=== PATIENT | male | born 1975 | race African-American/Black ===

== ENCOUNTER 2016-12-12 08:32 | Inpatient (IN) ==
[2016-12-12] MEDS ORDERED: amLODIPine 5 MG TABLET ONE (09:11)
[2016-12-12 09:16] LABS: Basophils % 0.3 % (0.0-0.8); Eosinophils # 0.1 10*3/uL (0.0-0.87); Eosinophils % 1.7 % (0.00-10.9); Hematocrit 41.4 VOL% (42.0-52.0); Hemoglobin 14.4 GM/DL (14.0-18.0); Immature Granulocytes % 0.2 %; Immature Granulocytes Absolute 0.01 #; Lymphocytes # 2.1 10*3/uL (1.4-4.0); Lymphocytes % 35.1 % (21.2-54.2); Mean Corpuscular HGB Conc 34.8 GM/DL (32-36); Mean Corpuscular Hemoglobin 29 PG (27-34); Mean Corpuscular Volume 83.3 FL (87-102); Mean Platelet Volume 11.4 FL (9.6-12.0); Monocytes # 0.4 10*3/uL (0.11-0.8); Monocytes % 6.8 % (1.7-12.7); Neutrophils # 3.3 10*3/uL (1.4-7.4); Neutrophils % 55.9 % (38.7-73.9); Platelet Count 219 T/CUMM (130-400); Red Blood Count 4.97 MC/CUMM (3.8-5.5); Red Cell Distribution Width 12.8 % (9.3-17.3); White Blood Count 5.8 T/CUMM (4-12)
--- NOTE | 2016-12-12 09:16 | CT Report ---
History: Slurred speech. Unsteady gait Date: 12/12/2016 Study: CT head without contrast Comparison exam: No previous head CT available Transaxial CT sections were obtained through the head without IV contrast. This CT exam was performed using one or more the following dose reduction techniques: Automated exposure control, adjustment of the MA and/or KV according to patient size, or use of iterative reconstruction technique. The ventricles are midline in position without evidence of hydrocephalus. There is no mass or parenchymal hemorrhage. There is no gross CT evidence of acute cortical stroke. There is a small amount of ill-defined low density in the periventricular white matter without mass effect compatible with changes of small vessel disease. There is no extra-axial hematoma. The partially visualized paranasal sinuses and mastoid air cells are clear. Impression: No acute intracranial process PROCEDURE INTERPRETED AT [facility] DEPARTMENT OF RADIOLOGY Final Report Signed by: Dr. Edith Eaton
--- NOTE | 2016-12-12 09:18 | EKG Report ---
Stationary ECG Study [facility] ER Test Date: 12/12/2016 9:16:23 AM Pat Name: KURT TORRES Department: Room: Gender: M Media Reporter: : 1975 Requested by: Shane Solis Order Number: [id number] Reading MD: SILVINO BURGOS Intervals [place] Rate: 70 P: 69 WV: 146 QRS: 97 QRSD: 101 T: -43 QT: 381 QTc: 401 Interpretive Statements SINUS RHYTHM BORDERLINE RIGHT AXIS DEVIATION ST DEVIATION AND MODERATE T-WAVE ABNORMALITY, CONSIDER INFERIOR ISCHEMIA Electronically Signed On 12-12-16 16:13:42 CDT by SILVINO BURGOS [email or web address]
[2016-12-12] MEDS ORDERED: amLODIPine 5 MG TABLET PO STA (09:19)
[2016-12-12 09:37] LABS: Alanine Aminotransferase 25 U/L (16-61); Albumin 3.7 G/DL (3.4-5.0); Alkaline Phosphatase 74 U/L (45-117); Aspartate Amino Transferase 15 U/L (0-37); Bilirubin,Total < 0.39 MG/DL (0.2-1.0); Blood Urea Nitrogen 13 MG/DL (7-18); Glucose 184 MG/DL (74-106); Osmolality,Calculated 285.3 MOS/KG (273-304); Potassium 3.4 MMOL/L (3.5-5.1); Sodium 141 MMOL/L (136-145); Total Protein 6.8 G/DL (6.4-8.3)
--- NOTE | 2016-12-12 09:51 | XRay Report ---
XR chest 1V portable Indication: Cardiomegaly Comparison: None Technique: Single frontal view of the chest. Findings: Heart size appears within normal limits. No significantly enlarged lymph nodes by CT size criteria. Visualized osseous and surrounding soft tissue structures demonstrate no acute abnormality. IMPRESSION: No acute cardiopulmonary process demonstrated. PROCEDURE INTERPRETED AT [facility] DEPARTMENT OF RADIOLOGY Final Report Signed by: Dr Jorje Hsu
--- NOTE | 2016-12-12 10:25 | Emergency Department Note ---
Darren Retana Gwan, am scribing for, and in the presence of, Shane Garrett MD 10:07. Tami Retana Phillip K, MD, personally performed the services described in this documentation, ascribed by Prabhjot Banks in my presence, and it is both accurate and complete . Arrival - Arrival Chief Complaint: Neuro Stated Complaint: My speech, my legs not working right ED Nursing Triage Note: Pt c/o slurred speech and states his legs are not "walking right". Pt ambulatory into triage without difficulty. Mode of Arrival: Ambulatory Limitations: No Limitations Source: Patient, Old Records Reviewed, RN Notes Reviewed Time Seen by Provider: 12/12/16 09:04 - History of Present Illness HPI Narrative: Patient is a 41 y/o male, with a hx of HTN, who presents to the ED with a c/o slurred speech and weakness in right leg with an onset yesterday at 1600. Patient stated that his sxs onset yesterday while he was at work. He continued to note that when he woke up this morning, his sxs worsened to include numbness in right upper and lower extremity. This prompted the pt to report to the ED for further evaluation. Patient confirmed that he voluntarily stopped taking his BP medication 2 years ago and that he has a SHx of smoking cigarettes and occasional ETOH use. Patient denies any chest pain or having a WARREN now while in ED. He also has a FMHx of strokes. No other problem/concerns reported in ED. Onset (ago): day(s) Consistency: constant Severity: moderate Allergies/Adverse Reactions: Allergies Allergy/AdvReac Type Severity Reaction Status Date / Time No Known Allergies Allergy Verified 12/12/16 08:41 Review of System - Review of System 12 point system: reviewed and no additional remarkable complaints except as stated - Review of System Constitutional: Absent: chills, fever Eyes: Absent: discharge, pain Head/Ears/Nose/Throat: Absent: earache Respiratory: Absent: cough Cardiovascular: Absent: chest pain Gastrointestinal: Absent: abdominal pain, nausea, vomiting, diarrhea Genitourinary male: Absent: urgency, dysuria Musculoskeletal: Absent: arm pain, back pain, leg pain, neck pain Skin: Absent: rash, lesions Neurological: Present: as per HPI, weakness (right arm and right leg) Psychiatric: Absent: anxiety Medical,Surgical,& Family Hx - Medical History Cardio: History of: Hypertension (does not take meds) - Social History Smoking Status: Current every day smoker Exam Vital Signs: Vital Signs Temperature 97.4 F L 12/12/16 09:15 Pulse Rate 88 12/12/16 09:15 Respiratory Rate 18 12/12/16 09:15 Blood Pressure 175/117 12/12/16 09:15 O2 Sat by Pulse Oximetry 98 12/12/16 09:00 - General General appearance: alert, in no apparent distress - Head Head exam: Present: atraumatic, normocephalic - Eye Eye exam: Present: normal appearance, PERRL, EOMI - ENT ENT exam: Present: normal oropharynx, mucous membranes moist, TM's normal bilaterally, normal external ear exam - Neck Neck exam: Present: full ROM, trachea midline. Absent: tenderness - Chest Chest inspection: Present: symmetric chest wall rise. Absent: tenderness - Respiratory Respiratory exam: Present: normal lung sounds bilaterally. Absent: respiratory distress - Cardiovascular Cardiovascular exam: Present: regular rate, normal rhythm, normal heart sounds. Absent: murmur, rubs - Abdominal Exam Abdominal exam: Present: soft, normal bowel sounds. Absent: distention, tenderness - Extremities Exam Extremities exam: Present: full ROM, other (weakness is noted in the right paper deliverer , right lower extremity and right upper extremitiy). Absent: tenderness - Back Exam Back exam: Present: full ROM. Absent: tenderness - Neurological Exam Neurological exam: Present: alert, oriented X3 - Psychiatric Psychiatric exam: Present: normal affect, normal mood - Skin Skin exam: Present: warm, dry, intact, normal color Course Course Narrative: Patient remains hypertensive after the [facility]. We will add some labetalol 20 mg IV. Patient discussed with the hospitalist who will admit for further evaluation and neurology consult. Patient continues to have weakness in his right paper deliverer and is right-handed. Results - Labs CBC & BMP: 12/12/16 09:02 12/12/16 09:02 Lab Results: I have reviewed the patients labs Labs: Laboratory Tests 12/12/16 09:02 WBC 5.8 RBC 4.97 Hgb 14.4 Hct 41.4 L MCV 83.3 L Plt Count 219 Laboratory Tests 12/12/16 09:02 Sodium 141 Potassium 3.4 L Chloride 104 Carbon Dioxide 28 BUN 13 Creatinine 1.00 Glucose 184 H Serum Alcohol < 15 L - EKG EKG results: interpreted by ERMD, sinus rhythm (Inferior and lateral ischemia versus LVH with strain) - Diagnostic Findings Procedure: Chest x-ray: report reviewed by me (No acute cardiopulmonary process demonstrated. ), CT: report reviewed by me (No acute intracranial process. ) Disposition Clinical Impression: CVA versus TIA, Hypertension, Tobacco abuse Case discussed with: patient Disposition: Still a Patient Condition: Guarded Additional Instructions: Admit to the hospitalist.
[2016-12-12 10:32] LABS: Apearance,Urine CLEAR (Clear); Bilirubin,Urine Negative (Negative); Blood, Urine Negative (Negative); Glucose,Urine (UA) >=500 mg/dL (Negative); Ketones,Urine Negative (Negative); Nitrite,Urine Negative (Negative); Protein,Urine Negative; RBC,Urine <1 /HPF (0-4); Urine Color Yellow (Yellow); Urine Specific Gravity 1.011 (1.001-1.035); Urine Urobilinogen < 2.0 EU/DL (0.2-1.0); WBC,Urine <1 /HPF (0-6)
[2016-12-12] MEDS ORDERED: LABETALOL 20 MG/4 ML SYRINGE IV STA (10:32)
[2016-12-12 10:37] LABS: Barbiturates Screen,Urine Negative (Negative); Benzodiazepines Screen,Urine Negative (Negative); Cannabinoid Screen,Urine Negative (Negative); Opiate Screen,Urine Negative (Negative); Phencyclidine Screen,Urine Negative (Negative)
[2016-12-12] MEDS ORDERED: LABETALOL 20 MG/4 ML SYRINGE IV ONE (10:43)
--- NOTE | 2016-12-12 11:14 | Hospitalist History & Physical ---
Assessment and Plan (1) Hypertension Status: Chronic Assessment and plan: Untreated hypertension associated with retina and probable subcortical/lacunar event. Urine drug screen positive for cocaine. Hypokalemia possibly reflective adrenergic shift versus endocrine mediated hypertension. Current Visit: Yes History of Present Illness History of present illness: Mr. Acevedo is a 41 year old male who was diagnosed 3 years ago as having hypertension. He took medication for less than a year and did not follow up he states that yesterday after working in a hot environment he noticed some weakness in his right leg and right upper extremity. There was no headache speech disturbance visual changes nausea vomiting etc. When he awoke this morning the symptoms had not remitted and he presented to the emergency department. He describes no worsening or improvement in his symptoms overnight and no new symptoms. In the emergency room he was significantly hypertensive and is admitted to the hospital for further evaluation and treatment. Home Medications Medication Instructions Recorded Confirmed Type No Known Home Medications [No 12/12/16 12/12/16 History Known Home Medications] Allergies Allergy/AdvReac Type Severity Reaction Status Date / Time No Known Allergies Allergy Verified 12/12/16 08:41 Medical,Surgical,& Family Hx - Medical History Cardio: History of: Hypertension (Off medications for 2-2 and half years) - Surgical History HEENT Surgeries: Surgical HX of: Tonsilectomy & Adenoidectomy - Social History Smoking Status: Current every day smoker (Approximately three quarters of a pack per day) Frequency of Alcohol Use: Rarely - Constitutional Constitutional: Absent: chills, frequent falls, headache(s) - EENT Eyes: Absent: blurry vision, diplopia - Cardiovascular Cardiovascular: Absent: chest pain at rest, chest pain with activity, edema, orthopnea, palpitations - Respiratory Respiratory: Absent: dyspnea - Gastrointestinal Gastrointestinal: Absent: abdominal pain, coffee ground emesis, dysphagia, hematemesis, hematochezia, melena, nausea, vomiting - Genitourinary Genitourinary: Absent: difficulty urinating, hematuria - Neurological Neurological: Present: as per HPI Exam - Constitutional Vitals: Period Temp Pulse Resp BP Sys/Choi Pulse Ox Last 24 Hr 97.3 F-97.4 F 80-88 16-20 175-186/111-117 97-98 General appearance: normal weight - Eye Pupils: Present: NEVIN, normal accommodation, unequal (Funduscopic exam shows chronic vascular changes with no papilledema) - Neck Neck exam: Absent: lymphadenopathy, thyromegaly - Respiratory Respiratory exam: Present: clear to auscultation bilaterally. Absent: rales, rhonchi, wheezes - Cardiovascular Cardiovascular exam: Present: regular rate and rhythm - GI/Abdominal GI/Abdominal exam: Present: normal bowel sounds, other (No intra-abdominal or flank bruits). Absent: organomegaly - Extremities Exam Extremities exam: Absent: edema - Neurological Exam Neurological exam: Present: alert, oriented X3, CN II-XII intact, other (3 out of 4 weakness right upper and light lower with normal cerebellar exam) - Psychiatric Psychiatric exam: Present: normal affect, normal mood Results - Labs CBC & BMP: 12/12/16 09:02 12/12/16 09:02 Labs: Normal liver panel Urine drug screen positive for cocaine Urinalysis glucose greater than 500 no active sediment - Impressions Sinus rhythm rightward axis with inferior repolarization abnormality suggesting right ventricular hypertrophy type B augmented QRS voltage without delayed ventricular activation time. - Diagnostic Findings Procedure: Chest x-ray: image reviewed by me (Normal heart size with slight left ventricular configuration normal vascularity), CT: report reviewed by me ( CT of head demonstrates no abnormality.) Quality Measures - Stroke Onset of Symptoms Date: 12/11/16 Onset of Symptoms Time: 16:00
[2016-12-12] MEDS ORDERED: ONDANSETRON 4 MG/2 ML VIAL IV PRN (11:20)
[2016-12-12] MEDS ORDERED: ZALEPLON 5 MG CAPSULE PO PRN (11:20)
[2016-12-12] MEDS ORDERED: BISACODYL 5 MG TABLET PO PRN (11:20)
[2016-12-12 12:53] LABS: Risk Ratio 3.09; VLDL CHOLESTEROL 29.4 MG/DL
[2016-12-12] MEDS: DOCUSATE SODIUM 100 MG CAPSULE PO SCH ×2 (13:21→21:08)
[2016-12-12] MEDS: ATORVASTATIN 40 MG TABLET PO SCH (13:22)
[2016-12-12] MEDS: LABETALOL 300 MG TABLET PO SCH ×2 (13:23→21:09)
[2016-12-12] MEDS: NIFEdipine 10 MG CAPSULE PO SCH ×3 (13:23→23:50)
[2016-12-12] MEDS: ENOXAPARIN 40 MG/0.4 ML SYRINGE SUBCUT SCH (13:48)
--- NOTE | 2016-12-12 15:34 | Magnetic Resonance Report ---
History: Right-sided weakness. Date: 12/12/2016 Study: MRI brain without contrast Comparison exam: No previous MRI study The brain was imaged in 3 planes on the 1.2 Meka open magnet without IV contrast, to include diffusion, T2, FLAIR, and T1-weighted sequences. The exam was performed on the day of admission. The ventricles are midline in position without evidence of hydrocephalus. There is no Chiari I malformation. Is no gross pituitary mass. Small areas of focal restricted diffusion compatible with acute ischemia between 6 hours and 4 days old involving multiple vascular territories are noted. There is an 8.7 mm area of restricted diffusion in the right occipital lobe abutting the right occipital horn and splenium of the corpus callosum; there is a rounded 11 mm area of restricted diffusion in the left rosales radiata at the level of the posterior body of the left lateral ventricle; there is a 4.2 mm focus of restricted diffusion involving right frontal cortex and subcortical white matter. There is some patchy increased FLAIR and T2 signal without mass effect or restricted diffusion involving the periventricular white matter as well. Some of these changes involve the pericallosal area. There is no mass effect within the brain or parenchymal hemorrhage. There is asymmetrically decreased fluid signal within the left internal auditory canal as compared to the right, raising the question of underlying acoustic neuroma. There is no extra-axial hematoma. There is normal flow void in the superior sagittal sinus. There is no gross flow abnormality in the [place] area. There is some mild lobular mucosal thickening in the maxillary sinuses bilaterally. Impression: There are 3 scattered areas of restricted diffusion involving multiple vascular territories compatible with acute ischemia. Consider embolic phenomena. These foci are located within the right occipital lobe, right frontal lobe, and left rosales radiata. Also consider the possibility of demyelinating disease. There is some increased periventricular and pericallosal white matter T2 and FLAIR signal without mass effect. Follow-up postcontrast study may provide clarification There is asymmetrically decreased fluid signal within the left internal auditory canal, raising the question of potential underlying acoustic neuroma on the left. Postcontrast images using IAC protocol could provide clarification. Mild chronic sinus disease PROCEDURE INTERPRETED AT [facility] DEPARTMENT OF RADIOLOGY Final Report Signed by: Dr. Edith Eaton
--- NOTE | 2016-12-12 15:52 | Neurology Consult Note ---
History of Present Illness History of present illness: Mr. Acevedo is a 41 year old right-handed -Indian gentleman who was diagnosed 3 years ago as having hypertension. He took medication for less than a year and did not follow up he states that yesterday after working in a hot environment he noticed some weakness in his right leg and right upper extremity. There was no headache speech disturbance visual changes nausea vomiting etc. When he awoke this morning the symptoms had not remitted and he presented to the emergency department. He describes no worsening or improvement in his symptoms overnight and no new symptoms. In the emergency room he was significantly hypertensive and is admitted to the hospital for further evaluation and treatment. MRI of the brain revealed left centrum semiovale and right posterior parietal acute infarcts. Toxicology is positive for cocaine. He does smoke a pack per day. Denies alcohol Home Medications Medication Instructions Recorded Confirmed Type No Known Home Medications [No 12/12/16 12/12/16 History Known Home Medications] Allergies Allergy/AdvReac Type Severity Reaction Status Date / Time No Known Allergies Allergy Verified 12/12/16 08:41 12 point system: reviewed and no additional remarkable complaints except as stated Medical,Surgical,& Family Hx - Medical History Cardio: History of: Hypertension (Off medications for 2-2 and half years) - Surgical History HEENT Surgeries: Surgical HX of: Tonsilectomy & Adenoidectomy - Family History Family History: Reports;: Family Diabetes, Family Heart Disease (mom/sister) Denies;: Family Anesthesia Reaction, Family Cancer, Family Hematology, Family Hypertension, Family Psychiatric Problems, Family Stroke - Social History Smoking Status: Current every day smoker Frequency of Alcohol Use: Rarely Exam - Constitutional Vitals: Period Temp Pulse Resp BP Sys/Choi Pulse Ox Last 24 Hr 97.3 F-97.9 F 73-88 16-20 158-186/104-117 97-99 Exam: GENERAL: Patient is in no acute distress. NECK: Neck is supple. There is no JVD. No carotid bruits present. No thyroid masses. CVS: First and second heart sounds are normal. There is no S3 present. Regular rate and rhythm. RESPIRATORY: Lungs are clear to auscultation without any rales or rhonchi. ABDOMEN: Soft and non-tender. Bowel sounds are present. There is no hepatosplenomegaly. EXT: There is no palpable edema. Peripheral pulses are present. Skin: No rashes Central Nervous system: General: Alert, awake and Oriented x 3 Speech: Fluent Comprehension: Intact and normal Facial expressions: Normal Cranial Nerves: CN1/Olfactory: Normal CN II/ Optic: Normal, Visual Anderson unreliable CN III, and : NEVIN & EOMI CN V: Normal & intact CN VII: face is symmetric CNVIII: Normal CN XI/X/XI/XII: Intact and Normal Motor: Bulk and Tone is normal. Strength in the right 5/5 Strength in the left 5/5 Sensory: Grossly intact for all the modalities of PP, LT and temp sense Reflexes: 1+ and symmetrical Cerebellar function: Normal finger to nose and heel to mart testing. Toes: Equivocal Gait: Slightly broad-based Results - Labs CBC & BMP: 12/12/16 09:02 12/12/16 09:02 Assessment and Plan (1) Acute cerebrovascular accident Status: Acute Assessment and plan: Aspirin 325 mg. P.o. daily Carotid ultrasound Echo cardiac Current Visit: Yes (2) Cocaine use Status: Acute Assessment and plan: Counseled him regarding cessation of cocaine use or any drug abuse. Current Visit: Yes (3) Hypertension Status: Chronic Assessment and plan: Continue current medications. Check vitals per routine. Current Visit: Yes (4) Tobacco abuse Status: Acute Assessment and plan: Counseled him regarding cessation of smoking. Current Visit: Yes
[2016-12-12] MEDS: ASPIRIN EC 325 MG TABLET PO SCH (17:29)
--- NOTE | 2016-12-12 17:30 | Ultrasound Report ---
Bilateral carotid Doppler. Indication: CVA. Hypertension. Right-sided weakness. No prior studies. Grayscale, color-flow, and spectral analysis performed and interpreted. The carotid artery systems are quite tortuous. Minimal if any plaque is visible. The right internal carotid artery peak systolic velocity is 126 cm/s, with an IC/CC ratio of 1.0. The left internal carotid artery peak systolic velocity is 151 cm/s, with an IC/CC ratio of 1.3. There is antegrade flow within each vertebral artery. Impression: NASCET criteria were utilized. Discordant findings are present, with elevated peak systolic velocities suggesting greater than 50% stenosis bilaterally. However the IC/CC ratios, which tend to be more accurate, are within the range of normal. I suspected that the peak systolic velocities may be elevated due to either the tortuosity of the vessels, or hypertension, or combination of these things. For this reason, I recommend MRA of the carotid bifurcations for confirmation. PROCEDURE INTERPRETED AT [facility] DEPARTMENT OF RADIOLOGY Final Report Signed by: Dr. Radha Iyer
[2016-12-12] MEDS ORDERED: GLUCAGON 1 MG VIAL IM PRN (22:05)
[2016-12-12] MEDS ORDERED: DEXTROSE 50% 25 GM/50 ML VIAL IV PRN (22:05)
[2016-12-12] MEDS: INSULIN REGULAR 100 UNIT/ML SUBCUT SCH (22:22)
[2016-12-13] MEDS: NIFEdipine 10 MG CAPSULE PO SCH ×3 (05:10→17:38)
[2016-12-13 06:31] LABS: Calcium 8.3 MG/DL (8.5-10.1); Osmolality,Calculated 281.5 MOS/KG (273-304); Potassium 3.6 MMOL/L (3.5-5.1)
[2016-12-13] MEDS: INSULIN REGULAR 100 UNIT/ML SUBCUT SCH ×4 (08:20→21:30)
[2016-12-13] MEDS: ASPIRIN EC 325 MG TABLET PO SCH (08:21)
[2016-12-13] MEDS: DOCUSATE SODIUM 100 MG CAPSULE PO SCH ×2 (08:21→21:30)
[2016-12-13] MEDS: ATORVASTATIN 40 MG TABLET PO SCH (08:21)
[2016-12-13] MEDS: LABETALOL 300 MG TABLET PO SCH ×2 (08:22→21:30)
--- NOTE | 2016-12-13 09:25 | Neurology Progress Note ---
Neurology - PN : Subjective Interval history: Patient seems to be doing okay. He states that he may be slightly weaker than the right arm. Echo is pending Exam (Progress Note) - Constitutional Vitals: Period Temp Pulse Resp BP Sys/Choi Pulse Ox Last 24 Hr 97.7 F-98.1 F 69-96 17-20 113-186/57-111 96-99 Exam: GENERAL: Patient is in no acute distress. NECK: Neck is supple. There is no JVD. No carotid bruits present. No thyroid masses. CVS: First and second heart sounds are normal. There is no S3 present. Regular rate and rhythm. RESPIRATORY: Lungs are clear to auscultation without any rales or rhonchi. ABDOMEN: Soft and non-tender. Bowel sounds are present. There is no hepatosplenomegaly. EXT: There is no palpable edema. Peripheral pulses are present. Skin: No rashes Central Nervous system: General: Alert, awake and Oriented x 3 Speech: Fluent Comprehension: Intact and normal Facial expressions: Normal Cranial Nerves: CN1/Olfactory: Normal CN II/ Optic: Normal, Visual Anderson unreliable CN III, and : NEVIN & EOMI CN V: Normal & intact CN VII: face is symmetric CNVIII: Normal CN XI/X/XI/XII: Intact and Normal Motor: Bulk and Tone is normal. Strength in the right 5/5 Strength in the left 5/5 Sensory: Grossly intact for all the modalities of PP, LT and temp sense Reflexes: 1+ and symmetrical Cerebellar function: Normal finger to nose and heel to mart testing. Toes: Equivocal Gait: Slightly broad-based Results - Labs CBC & BMP: 12/12/16 09:02 12/13/16 04:47 Assessment and Plan (1) Acute cerebrovascular accident Status: Acute Assessment and plan: Continue aspirin 325 mg. P.o. daily Current Visit: Yes (2) Cocaine use Status: Acute Assessment and plan: Counseled him regarding cessation of cocaine use or any drug abuse. Possibly cocaine induced vasculopathy may be the cause of a stroke along with hypertension Current Visit: Yes (3) Hypertension Status: Chronic Assessment and plan: Continue current medications. Check vitals per routine. Blood pressure is a stable. Current Visit: Yes (4) Tobacco abuse Status: Acute Assessment and plan: Counseled him regarding cessation of smoking. Current Visit: Yes Quality Measures - Stroke Onset of Symptoms Date: 12/11/16 Onset of Symptoms Time: 16:00
[2016-12-13] MEDS: ENOXAPARIN 40 MG/0.4 ML SYRINGE SUBCUT SCH (12:30)
[2016-12-13] MEDS ORDERED: MAGNESIUM HYDROXIDE SUSP 30 ML UDCUP PO PRN (15:45)
--- NOTE | 2016-12-13 15:55 | Hospitalist Progress Note ---
Assessment and Plan (1) Hypertension Status: Chronic Current Visit: Yes (2) Tobacco abuse Status: Acute Current Visit: Yes (3) Acute cerebrovascular accident Status: Acute Assessment and plan: MRA carotids ordered Current Visit: Yes (4) Cocaine use Status: Acute Current Visit: Yes Hospitalist: Subjective Interval history: No acute events overnight. He is doing well. He reports constipation for approximately 2 days. Exam - Constitutional Vitals: Period Temp Pulse Resp BP Sys/Choi Pulse Ox Last 24 Hr 97.4 F-98.1 F 69-96 17-20 113-140/57-85 96-98 General appearance: over weight - Head Head exam: Present: normocephalic, atraumatic - Eye Eye exam: Present: EOMI Pupils: Present: NEVIN - ENT ENT exam: Present: normal exam - Neck Neck exam: Present: normal inspection - Respiratory Respiratory exam: Present: clear to auscultation bilaterally. Absent: wheezes - Cardiovascular Cardiovascular exam: Present: regular rate and rhythm - GI/Abdominal GI/Abdominal exam: Present: normal bowel sounds, soft. Absent: tenderness - Extremities Exam Extremities exam: Present: normal inspection - Back Exam Back exam: Present: normal inspection - Neurological Exam Neurological exam: Present: alert, oriented X3 - Psychiatric Psychiatric exam: Present: normal affect, normal mood Results - Labs CBC & BMP: 12/12/16 09:02 12/13/16 04:47 Quality Measures - Stroke Onset of Symptoms Date: 12/11/16 Onset of Symptoms Time: 16:00 Specialty Discharge - Follow Up or Referrals
--- NOTE | 2016-12-13 16:27 | ECHO Report ---
AcevedoMassimo miller Exam Date: 12/13/2016 09:29 Referring Physician: Technologist: kyle Zapata ARDMS, RVT Age: 41 Ht (in): 67 Wt (lb): 210 Gender: M Exam Location: [facility] Echo Indications: Essential (primary) hypertension, Acute CVA, Cocaine use BP: 132 / 75 HR: 76 Rhythm: Sinus Technical Quality: Good IMPRESSIONS Normal left ventricular cavity size. Moderate left ventricular hypertrophy. Left ventricular ejection fraction is estimated at 55-60 %. The right ventricle is normal in size and function. The right atrium is normal in size. The left atrium is normal in size. Mild aortic valve sclerosis. Mild aortic valve sclerosis. Morphologically normal tricuspid valve. Trace to mild tricuspid valve regurgitation. Tricuspid regurgitation velocities suggest a PAP of 36 mmHg. Morphologically normal pulmonic valve without significant stenosis. There is no pulmonic regurgitation. Normal pericardium without effusion. Normal ascending aorta dimension. MEASUREMENTS (Male / Female) Normal Values 2D ECHO LV Diastolic Diameter PLAX 4.5 cm 4.2 - 5.9 / 3.9 - 5.3 cm LV Systolic Diameter PLAX 1.8 cm LV Fractional Shortening PLAX 60.9 % IVS Diastolic Thickness 1.5 cm 0.6 - 1.0 / 0.6 - 0.9 cm LVPW Diastolic Thickness 1.6 cm 0.6 - 1.0 / 0.6 - 0.9 cm RV Internal Dim ED PLAX 2.8 cm Aortic Root Diameter 3.2 cm LA Systolic Diameter LX 3.5 cm 3.0 - 4.0 / 2.7 - 3.8 cm DOPPLER TR Peak Velocity 257.0 cm/s TR Peak Gradient 26.4 mmHg FINDINGS Left Ventricle Normal left ventricular cavity size. Moderate left ventricular hypertrophy. Left ventricular ejection fraction is estimated at 55-60 %. Right Ventricle The right ventricle is normal in size and function. Right Atrium The right atrium is normal in size. Left Atrium The left atrium is normal in size. Mitral Valve Mild mitral valve sclerosis. Aortic Valve Mild aortic valve sclerosis. Tricuspid Valve Morphologically normal tricuspid valve. Trace to mild tricuspid valve regurgitation. Tricuspid regurgitation velocities suggest a PAP of 36 mmHg. Pulmonic Valve Morphologically normal pulmonic valve without significant stenosis. There is no pulmonic regurgitation. Pericardium Normal pericardium without effusion. Aorta Normal ascending aorta dimension. Bernardo Amaro MD (Electronically Signed) Final Date: 13 December 2016 16:26
[2016-12-13] MEDS: INSULIN NPH 100 UNIT/ML SUBCUT SCH (16:43)
--- NOTE | 2016-12-13 17:10 | Magnetic Resonance Report ---
History: Abnormal carotid ultrasound. Right-sided weakness Date: 12/13/2016 Study: MRA neck with and without IV contrast Comparison exam: Carotid ultrasound December 12, 2016 A 3-D [id number] MRA of the neck was performed with and without 20 ml Dotarem contrast on the 1.5 Meka magnet. In addition to axial source images, 3-D maximum intensity projection images were also archived and evaluated. There is no hemodynamically significant stenosis at the origins of the great vessels. There is antegrade flow in either vertebral artery. There is no significant stenosis within either common carotid artery. There is moderate kinking of the proximal aspect of either internal carotid artery just distal to the bulb level. There is 22% diameter reduction narrowing of the right internal carotid artery and 0% diameter reduction narrowing of the left internal carotid artery using NASCET criteria. The normal right ICA measures 4.9 mm; the normal left measures 4.2 mm. Impression: No hemodynamically significant stenosis of the internal carotid arteries. Tortuosity of the proximal internal carotid arteries bilaterally with moderate kinking PROCEDURE INTERPRETED AT [facility] DEPARTMENT OF RADIOLOGY Final Report Signed by: Dr. Edith Eaton
[2016-12-14] MEDS: NIFEdipine 10 MG CAPSULE PO SCH ×3 (01:59→11:41)
[2016-12-14] MEDS: ASPIRIN EC 325 MG TABLET PO SCH (08:07)
[2016-12-14] MEDS: LABETALOL 300 MG TABLET PO SCH ×2 (08:07→21:08)
[2016-12-14] MEDS: INSULIN NPH 100 UNIT/ML SUBCUT SCH ×2 (08:07→16:23)
[2016-12-14] MEDS: DOCUSATE SODIUM 100 MG CAPSULE PO SCH ×2 (08:07→22:14)
[2016-12-14] MEDS: INSULIN REGULAR 100 UNIT/ML SUBCUT SCH ×4 (08:08→21:08)
[2016-12-14] MEDS: ATORVASTATIN 40 MG TABLET PO SCH (11:41)
[2016-12-14] MEDS: ENOXAPARIN 40 MG/0.4 ML SYRINGE SUBCUT SCH (11:42)
--- NOTE | 2016-12-14 13:37 | Hospitalist Progress Note ---
Assessment and Plan (1) Hypertension Status: Chronic Assessment and plan: Continue labetalol Discontinue nifedipine, start amlodipine daily Start lisinopril Current Visit: Yes (2) Tobacco abuse Status: Acute Current Visit: Yes (3) Acute cerebrovascular accident Status: Acute Assessment and plan: MRA carotids ok Physical therapy Current Visit: Yes (4) Cocaine use Status: Acute Current Visit: Yes (5) Diabetes mellitus Status: Acute Assessment and plan: Patient denies a previous known history of DM Hemoglobin A1C is 7.9 Continue SSI and low dose basal Start metformin Current Visit: Yes Hospitalist: Subjective Interval history: No acute events overnight. Patient reports that he still has right sided weakness, not ambulating much in his room. He is concerned about the possibility of not being able to work and also of affording his medications and doctor appointments due to not having insurance. Will consult social work to answer his questions. Exam - Constitutional Vitals: Period Temp Pulse Resp BP Sys/Choi Pulse Ox Last 24 Hr 97.1 F-98.2 F 72-84 18-20 124-178/71-96 94-98 General appearance: over weight - Head Head exam: Present: normocephalic, atraumatic - Eye Eye exam: Present: EOMI Pupils: Present: NEVIN - ENT ENT exam: Present: normal exam - Neck Neck exam: Present: normal inspection - Respiratory Respiratory exam: Present: clear to auscultation bilaterally. Absent: wheezes - Cardiovascular Cardiovascular exam: Present: regular rate and rhythm - GI/Abdominal GI/Abdominal exam: Present: normal bowel sounds, soft. Absent: tenderness, rebound - Extremities Exam Extremities exam: Present: normal inspection - Back Exam Back exam: Present: normal inspection - Neurological Exam Neurological exam: Present: alert, oriented X3 - Psychiatric Psychiatric exam: Present: normal affect, normal mood - Skin Skin exam: Present: warm, intact Results - Labs CBC & BMP: 12/12/16 09:02 12/13/16 04:47 Quality Measures - Stroke Onset of Symptoms Date: 12/11/16 Onset of Symptoms Time: 16:00 Specialty Discharge - Follow Up or Referrals
[2016-12-14] MEDS: LISINOPRIL 5 MG TABLET PO SCH (16:26)
[2016-12-14] MEDS: amLODIPine 5 MG TABLET PO SCH (16:26)
[2016-12-14] MEDS: metFORMIN 500 MG TABLET PO SCH (16:32)
[2016-12-15] MEDS: INSULIN NPH 100 UNIT/ML SUBCUT SCH ×2 (08:28→17:31)
[2016-12-15] MEDS: INSULIN REGULAR 100 UNIT/ML SUBCUT SCH ×4 (08:28→20:42)
[2016-12-15] MEDS: DOCUSATE SODIUM 100 MG CAPSULE PO SCH ×2 (08:29→21:50)
[2016-12-15] MEDS: LABETALOL 300 MG TABLET PO SCH (08:29)
[2016-12-15] MEDS: metFORMIN 500 MG TABLET PO SCH ×2 (08:29→18:02)
[2016-12-15] MEDS: ATORVASTATIN 40 MG TABLET PO SCH (08:30)
[2016-12-15] MEDS: LISINOPRIL 5 MG TABLET PO SCH (08:31)
[2016-12-15] MEDS: amLODIPine 5 MG TABLET PO SCH (08:31)
[2016-12-15] MEDS: ASPIRIN EC 325 MG TABLET PO SCH (10:03)
[2016-12-15] MEDS: ENOXAPARIN 40 MG/0.4 ML SYRINGE SUBCUT SCH (13:12)
[2016-12-15] MEDS ORDERED: amLODIPine 10 MG TABLET PO SCH (13:34)
--- NOTE | 2016-12-15 15:19 | Hospitalist Progress Note ---
Assessment and Plan (1) Hypertension Status: Chronic Assessment and plan: Increase amlodipine and lisinopril Attempting to control with medications on the four dollar drug listl Current Visit: Yes (2) Tobacco abuse Status: Acute Current Visit: Yes (3) Acute cerebrovascular accident Status: Acute Assessment and plan: MRA carotids ok Physical therapy Current Visit: Yes (4) Cocaine use Status: Acute Current Visit: Yes (5) Diabetes mellitus Status: Acute Assessment and plan: Patient denies a previous known history of DM Hemoglobin A1C is 7.9 Continue SSI and low dose basal Continue metformin Current Visit: Yes Hospitalist: Subjective Interval history: No acute events overnight. Still with left sided weakness. Exam - Constitutional Vitals: Period Temp Pulse Resp BP Sys/Choi Pulse Ox Last 24 Hr 97.1 F-98.9 F 72-86 18-20 135-167/72-98 93-99 General appearance: over weight - Head Head exam: Present: normocephalic, atraumatic - Eye Eye exam: Present: EOMI Pupils: Present: NEVIN - ENT ENT exam: Present: normal exam - Neck Neck exam: Present: normal inspection - Respiratory Respiratory exam: Present: clear to auscultation bilaterally - Cardiovascular Cardiovascular exam: Present: regular rate and rhythm - GI/Abdominal GI/Abdominal exam: Present: normal bowel sounds, soft. Absent: tenderness, rebound - Extremities Exam Extremities exam: Present: normal inspection - Back Exam Back exam: Present: normal inspection - Neurological Exam Neurological exam: Present: alert, oriented X3 - Psychiatric Psychiatric exam: Present: normal affect, normal mood - Skin Skin exam: Present: warm, intact Results - Labs CBC & BMP: 12/12/16 09:02 12/13/16 04:47 Quality Measures - Stroke Onset of Symptoms Date: 12/11/16 Onset of Symptoms Time: 16:00 Specialty Discharge - Follow Up or Referrals
[2016-12-16 05:04] LABS: Basophils % 0.4 % (0.0-0.8); Eosinophils # 0.2 10*3/uL (0.0-0.87); Eosinophils % 2.9 % (0.00-10.9); Hematocrit 37.7 VOL% (42.0-52.0); Hemoglobin 13.1 GM/DL (14.0-18.0); Immature Granulocytes % 0.4 %; Immature Granulocytes Absolute 0.02 #; Lymphocytes # 2.4 10*3/uL (1.4-4.0); Lymphocytes % 43.8 % (21.2-54.2); Mean Corpuscular HGB Conc 34.7 GM/DL (32-36); Mean Corpuscular Hemoglobin 29 PG (27-34); Mean Corpuscular Volume 83.8 FL (87-102); Mean Platelet Volume 11.9 FL (9.6-12.0); Monocytes # 0.4 10*3/uL (0.11-0.8); Monocytes % 6.3 % (1.7-12.7); Neutrophils # 2.6 10*3/uL (1.4-7.4); Neutrophils % 46.2 % (38.7-73.9); Platelet Count 209 T/CUMM (130-400); White Blood Count 5.6 T/CUMM (4-12)
[2016-12-16 05:29] LABS: Calcium 9.1 MG/DL (8.5-10.1); Magnesium 1.8 MG/DL (1.8-2.4); Osmolality,Calculated 282.3 MOS/KG (273-304); Potassium 4.3 MMOL/L (3.5-5.1)
[2016-12-16] MEDS ORDERED: LISINOPRIL 10 MG TABLET PO SCH (09:00)
--- NOTE | 2016-12-16 09:10 | Neurology Progress Note ---
Neurology - PN : Subjective Interval history: Patient seems to be doing okay. No new problems reported. Able to get up and walk. Exam (Progress Note) - Constitutional Vitals: Period Temp Pulse Resp BP Sys/Choi Pulse Ox Last 24 Hr 97.1 F-98.5 F 65-79 18-20 136-165/77-96 96-99 Exam: GENERAL: Patient is in no acute distress. NECK: Neck is supple. There is no JVD. No carotid bruits present. No thyroid masses. CVS: First and second heart sounds are normal. There is no S3 present. Regular rate and rhythm. RESPIRATORY: Lungs are clear to auscultation without any rales or rhonchi. ABDOMEN: Soft and non-tender. Bowel sounds are present. There is no hepatosplenomegaly. EXT: There is no palpable edema. Peripheral pulses are present. Skin: No rashes Central Nervous system: General: Alert, awake and Oriented x 3 Speech: Fluent Comprehension: Intact and normal Facial expressions: Normal Cranial Nerves: CN1/Olfactory: Normal CN II/ Optic: Normal, Visual Anderson unreliable CN III, and : NEVIN & EOMI CN V: Normal & intact CN VII: face is symmetric CNVIII: Normal CN XI/X/XI/XII: Intact and Normal Motor: Bulk and Tone is normal. Strength in the right 5/5 Strength in the left 5/5 Sensory: Grossly intact for all the modalities of PP, LT and temp sense Reflexes: 1+ and symmetrical Cerebellar function: Normal finger to nose and heel to mart testing. Toes: Equivocal Gait: Slightly broad-based Results - Labs CBC & BMP: 12/16/16 03:23 12/16/16 03:23 Assessment and Plan (1) Acute cerebrovascular accident Status: Acute Assessment and plan: Continue aspirin 325 mg. P.o. daily Current Visit: Yes (2) Cocaine use Status: Acute Assessment and plan: Counseled done Current Visit: Yes (3) Hypertension Status: Chronic Assessment and plan: Continue current medications. Check vitals per routine. Blood pressure is a stable. Current Visit: Yes (4) Tobacco abuse Status: Acute Assessment and plan: Counseled him regarding cessation of smoking. Sign off please call as needed Current Visit: Yes Quality Measures - Stroke Onset of Symptoms Date: 12/11/16 Onset of Symptoms Time: 16:00 Specialty Discharge - Follow Up or Referrals
[2016-12-16] MEDS: INSULIN REGULAR 100 UNIT/ML SUBCUT SCH ×3 (09:22→17:10)
[2016-12-16] MEDS: INSULIN NPH 100 UNIT/ML SUBCUT SCH ×2 (09:22→17:10)
[2016-12-16] MEDS: DOCUSATE SODIUM 100 MG CAPSULE PO SCH (09:23)
[2016-12-16] MEDS: ASPIRIN EC 325 MG TABLET PO SCH (09:23)
[2016-12-16] MEDS: metFORMIN 500 MG TABLET PO SCH ×2 (09:23→17:22)
[2016-12-16] MEDS: ATORVASTATIN 40 MG TABLET PO SCH (09:23)
--- NOTE | 2016-12-16 13:08 | Hospitalist Progress Note ---
Assessment and Plan (1) Hypertension Status: Chronic Assessment and plan: Continue amlodipine and lisinopril Attempting to control with medications on the four dollar drug list Current Visit: Yes (2) Tobacco abuse Status: Chronic Current Visit: Yes (3) Acute cerebrovascular accident Status: Acute Assessment and plan: MRA carotids ok Physical therapy Current Visit: Yes (4) Cocaine use Status: Acute Current Visit: Yes (5) Diabetes mellitus Status: Acute Assessment and plan: Patient denies a previous known history of DM Hemoglobin A1C is 7.9 Continue SSI and low dose basal Continue metformin Current Visit: Yes Hospitalist: Subjective Interval history: No acute events overnight. Patient continues to complain of left sided weakness and pain. PT/OT ordered. Pending results of PT/OT will determine if goes home or needs placement. Exam - Constitutional Vitals: Period Temp Pulse Resp BP Sys/Choi Pulse Ox Last 24 Hr 97.1 F-98.5 F 65-79 18-20 136-165/77-101 96-99 General appearance: over weight - Head Head exam: Present: normocephalic, atraumatic - Eye Eye exam: Present: EOMI Pupils: Present: NEVIN - ENT ENT exam: Present: normal exam - Neck Neck exam: Present: normal inspection - Respiratory Respiratory exam: Present: clear to auscultation bilaterally - Cardiovascular Cardiovascular exam: Present: regular rate and rhythm - GI/Abdominal GI/Abdominal exam: Present: normal bowel sounds, soft. Absent: tenderness, rebound - Extremities Exam Extremities exam: Present: normal inspection - Back Exam Back exam: Present: normal inspection - Neurological Exam Neurological exam: Present: alert, oriented X3 - Psychiatric Psychiatric exam: Present: normal affect, normal mood - Skin Skin exam: Present: warm, intact Results - Labs CBC & BMP: 12/16/16 03:23 12/16/16 03:23 Quality Measures - Stroke Onset of Symptoms Date: 12/11/16 Onset of Symptoms Time: 16:00 Specialty Discharge - Follow Up or Referrals
[2016-12-16] MEDS: ENOXAPARIN 40 MG/0.4 ML SYRINGE SUBCUT SCH (13:36)
[2016-12-16 16:08] VITALS: BP 166/85
--- NOTE | 2016-12-16 16:09 | Discharge Summary ---
Hospital Course - Hospital Course Hospital Course: Mr. Acevedo is a 41 year old male who was diagnosed 3 years ago as having hypertension. He took medication for less than a year and did not follow up he stated that the day prior after working in a hot environment he noticed some weakness in his right leg and right upper extremity. He denied headache, speech disturbance, visual changes, nausea and vomiting. When he awoke the morning of admission the symptoms had not remitted and he presented to the emergency department. He described no worsening or improvement in his symptoms overnight and no new symptoms. In the emergency room he was significantly hypertensive. He was admitted to the hospitalist service with acute cva and uncontrolled hypertension. Neurology was consulted. He was started on aspirin and lipitor. Blood pressure medications were started. He was evaluated with MRI, echocardiogram, carotid dopplers and MRA neck. Hemoglobin A1C was 7.9. He was started on metformin. He was evaluated by physical therapy. Long discussions with patients over several days about the importance of taking his medications and seeing his primary care physicians. He has now reached maximal benefit of inpatient stay and will be discharged home. - Time spent with patient Time with patient DS: Greater than 30 minutes (40) Diagnosis - Discharge Diagnosis (1) Hypertension Status: Chronic (2) Tobacco abuse Status: Chronic (3) Acute cerebrovascular accident Status: Resolved (4) Cocaine use Status: Chronic (5) Diabetes mellitus Status: Chronic Specialty Discharge - Follow Up or Referrals Follow up with: Yudith Villarreal DO [Physician] - 1 Week (hosptial f/u cva, newly treated DM, DLD and HTN ) Discharge Plan - Discharge Data Disposition: Disch To Home/Self Care Condition at Discharge: Stable Discharge Diet: diabetic diet, low salt diet Activity: increase activity as tolerated Hygiene: no restrictions Weight Bearing at Discharge: weight bear as tolerated Contact your physician if you experience:: fever over 101, pain uncontrolled by pain medications - Discharge Medications New Aspirin EC Tab 325 mg PO DAILY #0 tablet Atorvastatin [Lipitor] 80 mg PO DAILY #90 tablet amLODIPine [Norvasc] 10 mg PO DAILY #90 tablet metFORMIN [Glucophage] 500 mg PO BID W/MEALS #90 tablet Lisinopril 20 mg PO DAILY #90 tablet - Follow Up or Referral - Forms/Instructions Instructions: How to Stop Smoking (DC) Exam - Constitutional Vitals: Period Temp Pulse Resp BP Sys/Choi Pulse Ox Last 24 Hr 97.1 F-98.5 F 65-79 18-20 136-165/77-101 96-99 General appearance: over weight - Head Head exam: Present: normocephalic, atraumatic - Eye Eye exam: Present: EOMI Pupils: Present: NEVIN - ENT ENT exam: Present: normal exam - Neck Neck exam: Present: normal inspection - Respiratory Respiratory exam: Present: clear to auscultation bilaterally. Absent: rhonchi, wheezes - Cardiovascular Cardiovascular exam: Present: regular rate and rhythm - GI/Abdominal GI/Abdominal exam: Present: normal bowel sounds, soft. Absent: tenderness, rebound - Extremities Exam Extremities exam: Present: normal inspection - Back Exam Back exam: Present: normal inspection - Neurological Exam Neurological exam: Present: alert, oriented X3 - Psychiatric Psychiatric exam: Present: normal affect, normal mood - Skin Skin exam: Present: warm, intact Discharge Results Labs on day of discharge: Labs from last 24 hours 12/16/16 12/16/16 12/16/16 15:21 11:51 07:03 WBC RBC Hgb Hct MCV MCH MCHC RDW Plt Count MPV Neut % (Auto) Lymph % (Auto) [place] % (Auto) Eos % (Auto) Baso % (Auto) Neut # (Auto) Lymph # (Auto) [place] # (Auto) Eos # (Auto) Baso # (Auto) Immature Gran % Nucleated RBC % Immature Gran # Nucleated RBCs # Sodium Potassium Chloride Carbon Dioxide Anion Gap BUN Creatinine GFR Calculation BUN/Creatinine Ratio Glucose POC Glucose 130 H 151 H 132 H Calculated Osmolality Calcium Magnesium 12/16/16 12/16/16 12/15/16 03:23 03:23 19:40 WBC 5.6 RBC 4.50 Hgb 13.1 L Hct 37.7 L MCV 83.8 L MCH 29 MCHC 34.7 RDW 13.0 Plt Count 209 MPV 11.9 Neut % (Auto) 46.2 Lymph % (Auto) 43.8 [place] % (Auto) 6.3 Eos % (Auto) 2.9 Baso % (Auto) 0.4 Neut # (Auto) 2.6 Lymph # (Auto) 2.4 [place] # (Auto) 0.4 Eos # (Auto) 0.2 Baso # (Auto) 0.0 Immature Gran % 0.4 Nucleated RBC % 0.0 Immature Gran # 0.02 Nucleated RBCs # 0.00 Sodium 141 Potassium 4.3 Chloride 102 Carbon Dioxide 31 Anion Gap 12.3 BUN 12 Creatinine 0.90 GFR Calculation 144 BUN/Creatinine Ratio 13.00 Glucose 137 H POC Glucose 210 H Calculated Osmolality 282.3 Calcium 9.1 Magnesium 1.8 12/15/16 15:59 WBC RBC Hgb Hct MCV MCH MCHC RDW Plt Count MPV Neut % (Auto) Lymph % (Auto) [place] % (Auto) Eos % (Auto) Baso % (Auto) Neut # (Auto) Lymph # (Auto) [place] # (Auto) Eos # (Auto) Baso # (Auto) Immature Gran % Nucleated RBC % Immature Gran # Nucleated RBCs # Sodium Potassium Chloride Carbon Dioxide Anion Gap BUN Creatinine GFR Calculation BUN/Creatinine Ratio Glucose POC Glucose 106 Calculated Osmolality Calcium Magnesium DS: Provider Date of admission: 12/12/16 10:52 Primary care physician: . No PCP Attending physician on admission: Luis Carlos Lee MD Consults: 12/12/16 11:20 Consult to Physician [CONS] Routine Comment: Hypertensive CVA Consulting Provider: Amanuel Garay Consult to Specialist Group: Neurology Person Notified: mary Date Notified: 12/12/16 Time Notified: 13:02 12/12/16 12:44 Consult to Pastoral Services [CONS] Routine Comment: Pastoral Screen: Request Infectious Disease Physician Visit Pastoral Screen Source of Request: Patient 12/14/16 13:31 Consult to Occupational Therapy [CONS] Routine Reason for Occupational Therapy: Evaluate and Treat Consult to Physical Therapy [CONS] Routine Reason for Physical Therapy: Evaluate and Treat 12/14/16 13:33 Consult to Case Mgmt/Social Srvs [CONS] Routine Reason for Case Mgmt/Social Srvs: Discharge Planning Consult Comment: questions about insurance Discharging clinician: Nubia Gil MD
== END 2016-12-16 18:01 | disposition home or self-care (01) | DRG 65 ==
LOC: N.ED 08:32 → N.EDINP 10:52 → SUATTDRO 10:52 → N.2E 11:29
PROVIDERS: ADMIT Internal Medicine Cardiovascular Disease; ATTEND Internal Medicine